=== PATIENT | male | born 1955 | race Caucasian/White ===

== ENCOUNTER 2017-12-13 15:22 | Inpatient (IN) | payer OTHER ==
[2017-12-13 15:48] LABS: ADD MAN DIFF? NO
[2017-12-13] MEDS: ALBUTEROL 0.5% (NEB) 2.5 MG/0.5 ML AMP INH (15:52)
[2017-12-13] MEDS: IPRATROPIUM (NEB) 0.5 MG/2.5 ML AMP INH (15:52)
[2017-12-13 15:53] LABS: BASOPHILS % 0.4 % (0.0-2.0); HEMATOCRIT 56.6 % (42.0-52.0); HEMOGLOBIN 17.2 g/dl (14.0-18.0); LYMPHOCYTES # 0.8 10^3/ul (0.8-2.9); LYMPHOCYTES % 9.2 % (15.0-51.0); MEAN CORPUSCULAR HEMOGLOBIN 28.1 pg (29.0-33.0); MEAN CORPUSCULAR HGB CONC 30.4 g/dl (32.0-37.0); MEAN CORPUSCULAR VOLUME 92.5 fl (82.0-101.0); MEAN PLATELET VOLUME 10.1 fl (7.4-10.4); MONOCYTES % 11.8 % (0.0-11.0); NEUTROPHIL # 6.5 10^3/ul (1.6-7.5); NEUTROPHILS % 78.2 % (39.0-77.0); PLATELET COUNT 185 10^3/UL (140-415); RED BLOOD COUNT 6.12 10^6/ul (4.70-6.10); RED CELL DISTRIBUTION WIDTH 15.1 % (11.5-14.5)
[2017-12-13 15:53] LABS: WHITE BLOOD COUNT 8.3 10^3/ul (4.8-10.8)
[2017-12-13] MEDS: ASPIRIN 81 MG TAB PO (15:57)
[2017-12-13] MEDS: METHYLPREDNISOLONE 125 MG INJ IV (15:58)
[2017-12-13] MEDS: FUROSEMIDE 40 MG INJ IV (15:58)
[2017-12-13] MEDS: ACETAMINOPHEN 325 MG TAB PO (15:58)
[2017-12-13] MEDS: ENALAPRILAT 1.25 MG INJ IV (15:59)
[2017-12-13 16:13] LABS: ALANINE AMINOTRANSFERASE 28 IU/L (13-69); ALBUMIN 3.9 g/dl (3.3-4.9); ALBUMIN/GLOBULIN RATIO 1.21; ALKALINE PHOSPHATASE 84 IU/L (42-121); ANION GAP 14 (8-16); ASPARTATE AMINO TRANSFERASE 38 IU/L (15-46); BILIRUBIN,INDIRECT 0.8 mg/dl (0-1.1); BILIRUBIN,TOTAL 0.8 mg/dl (0.2-1.3); BLOOD UREA NITROGEN 36 mg/dl (7-20); CALCIUM 8.5 mg/dl (8.4-10.2); CARBON DIOXIDE 34 mmol/L (21-31); CHLORIDE 97 mmol/L (97-110); GLUCOSE 127 mg/dl (70-220); LIPASE 115 U/L (23-300); SODIUM 140 mmol/L (135-144); TOTAL PROTEIN 7.1 g/dl (6.1-8.1)
[2017-12-13 16:21] LABS: LACTIC ACID 1.4 mmol/L (0.5-2.0)
[2017-12-13 16:22] LABS: B-TYPE NATRIURETIC PEPTIDE 5320 PG/ML (0-125)
[2017-12-13 16:23] LABS: INR 1.23; PROTIME 15.7 Sec (11.9-14.9); PT RATIO 1.2
[2017-12-13 16:24] LABS: TROPONIN-I 0.012 ng/ml (0.000-0.120)
[2017-12-13] MEDS: CEFTRIAXONE 2 GM/50 ML (PMX) 50 ML IVPB (16:43)
[2017-12-13 19:01] LABS: ADD UMIC NO; UR ASCORBIC ACID NEGATIVE (NEGATIVE); UR BILIRUBIN (Dip) NEGATIVE (NEGATIVE); UR BLOOD (Dip) NEGATIVE (NEGATIVE); UR CLARITY CLEAR (CLEAR); UR COLOR YELLOW (YELLOW); UR GLUCOSE (Dip) NEGATIVE (NEGATIVE); UR KETONES (Dip) NEGATIVE (NEGATIVE); UR LEUKOCYTE ESTERASE (Dip) NEGATIVE Leu/ul (NEGATIVE); UR NITRITE (Dip) NEGATIVE (NEGATIVE); UR SPECIFIC GRAVITY (Dip) 1.012 (1.003-1.030); UR TOTAL PROTEIN (Dip) NEGATIVE (NEGATIVE); UR UROBILINOGEN (Dip) NEGATIVE (NEGATIVE)
[2017-12-13] MEDS ORDERED: ACETAMINOPHEN 325 MG TAB PO (20:00)
[2017-12-13] MEDS ORDERED: ONDANSETRON 4 MG TAB PO (20:00)
[2017-12-13] MEDS ORDERED: DOCUSATE SODIUM 100 MG CAP PO (20:00)
[2017-12-13] MEDS ORDERED: NACL 0.9% 3 ML SYG IV (20:00)
[2017-12-13 20:11] LABS: LACTIC ACID 1.5 mmol/L (0.5-2.0)
[2017-12-13] MEDS ORDERED: hydrALAzine 20 MG INJ IV (22:30)
[2017-12-13 23:31] LABS: LACTIC ACID 2.8 mmol/L (0.5-2.0)
[2017-12-14] MEDS: ALBUTEROL/IPRATROPIUM (NEB) 3 ML AMP HHN ×3 (01:11→20:00)
[2017-12-14 01:21] LABS: ETHANOL < 10.0 mg/dl
[2017-12-14] MEDS ORDERED: FUROSEMIDE 20 MG INJ IV (06:00)
[2017-12-14] MEDS: FUROSEMIDE 40 MG INJ IV ×2 (06:20→17:40)
[2017-12-14 07:01] LABS: AMPHETAMINE/METHAMPHETAMINE POSITIVE (NEGATIVE); BARBITURATES NEGATIVE (NEGATIVE); BENZODIAZEPINES NEGATIVE (NEGATIVE)
[2017-12-14 07:02] LABS: CANNABINOIDS POSITIVE (NEGATIVE); COCAINE NEGATIVE (NEGATIVE); OPIATES NEGATIVE (NEGATIVE)
[2017-12-14 09:16] LABS: ADD MAN DIFF? NO; HAAIG REFLEX REFLEX FILED
[2017-12-14 09:23] LABS: WHITE BLOOD COUNT 7.1 10^3/ul (4.8-10.8)
[2017-12-14 09:23] LABS: ABNORMAL IP MESSAGE 1; HEMATOCRIT 58.3 % (42.0-52.0); HEMOGLOBIN 16.8 g/dl (14.0-18.0); LYMPHOCYTES # 0.4 10^3/ul (0.8-2.9); LYMPHOCYTES % 5.1 % (15.0-51.0); MEAN CORPUSCULAR HEMOGLOBIN 27.3 pg (29.0-33.0); MEAN CORPUSCULAR HGB CONC 28.8 g/dl (32.0-37.0); MEAN CORPUSCULAR VOLUME 94.8 fl (82.0-101.0); MEAN PLATELET VOLUME 10.8 fl (7.4-10.4); MONOCYTE # 0.6 10^3/ul (0.3-0.9); NEUTROPHIL # 6.1 10^3/ul (1.6-7.5); NEUTROPHILS % 85.6 % (39.0-77.0); PLATELET COUNT 180 10^3/UL (140-415); POSITIVE DIFF @See below; RED BLOOD COUNT 6.15 10^6/ul (4.70-6.10); RED CELL DISTRIBUTION WIDTH 16.5 % (11.5-14.5)
[2017-12-14] MEDS ORDERED: ALBUTEROL/IPRATROPIUM (NEB) 3 ML AMP HHN (09:30)
[2017-12-14 09:51] LABS: ALANINE AMINOTRANSFERASE 23 IU/L (13-69); ALBUMIN 3.8 g/dl (3.3-4.9); ALBUMIN/GLOBULIN RATIO 1.15; ALKALINE PHOSPHATASE 79 IU/L (42-121); ASPARTATE AMINO TRANSFERASE 32 IU/L (15-46); BILIRUBIN,INDIRECT 0.1 mg/dl (0-1.1); BILIRUBIN,TOTAL 0.1 mg/dl (0.2-1.3); BLOOD UREA NITROGEN 35 mg/dl (7-20); CALCIUM 8.4 mg/dl (8.4-10.2); CHLORIDE 95 mmol/L (97-110); CHOL/HDL RATIO 2.3 RATIO; CHOLESTEROL 67 mg/dl (100-200); CREATININE 1.17 mg/dl (0.61-1.24); GLUCOSE 167 mg/dl (70-220); HDL CHOLESTEROL 28 mg/dl (30-78); LDL CHOLESTEROL,CALCULATED 25 mg/dl; MAGNESIUM 1.9 mg/dl (1.7-2.5); POTASSIUM 5.4 mmol/L (3.5-5.1); SODIUM 145 mmol/L (135-144); TOTAL PROTEIN 7.1 g/dl (6.1-8.1); TRIGLYCERIDES 69 mg/dl (0-149)
[2017-12-14 09:52] LABS: LACTIC ACID 2.3 mmol/L (0.5-2.0)
[2017-12-14 09:58] LABS: ANION GAP 14 (8-16)
[2017-12-14 09:59] LABS: CARBON DIOXIDE 41 mmol/L (21-31)
[2017-12-14] MEDS: LEVOFLOXACIN 500MG/D5W (PMX) 100 ML IVPB (11:44)
[2017-12-14 13:34] LABS: HEPATITIS B SURFACE ANTIGEN NEGATIVE (NEGATIVE)
[2017-12-14 13:51] LABS: HEPATITIS B CORE ANTIBODY NEGATIVE (NEGATIVE); HEPATITIS C VIRAL ANTIBODY NEGATIVE (NEGATIVE)
[2017-12-14 13:52] LABS: HEPATITIS B SURFACE ANTIBODY NEGATIVE (NEGATIVE)
[2017-12-14 14:22] LABS: HEMOGLOBIN A1C 9.2 % (0-5.9)
[2017-12-14 17:31] LABS: AMMONIA 21 umol/l (9-30)
[2017-12-14] MEDS ORDERED: VANCOMYCIN IV PER PHARMACY XX (19:00)
[2017-12-14] MEDS: BUDESONIDE (NEB) 0.5MG/2ML AMP HHN (20:01)
[2017-12-14] MEDS: VANCOMYCIN 2 GM in SOD CHLORIDE 0.9% 500 ML IVPB (21:02)
[2017-12-14 23:14] LABS: BLOOD UREA NITROGEN 33 mg/dl (7-20); CALCIUM 8.1 mg/dl (8.4-10.2); CHLORIDE 95 mmol/L (97-110); CREATININE 1.14 mg/dl (0.61-1.24); GLUCOSE 118 mg/dl (70-220); POTASSIUM 4.7 mmol/L (3.5-5.1); SODIUM 142 mmol/L (135-144)
[2017-12-14 23:40] LABS: ANION GAP 11 (8-16)
[2017-12-14 23:43] LABS: CARBON DIOXIDE 41 mmol/L (21-31)
[2017-12-15] MEDS: FUROSEMIDE 40 MG INJ IV ×2 (05:30→18:02)
[2017-12-15] MEDS: BUDESONIDE (NEB) 0.5MG/2ML AMP HHN ×2 (08:08→20:01)
[2017-12-15] MEDS: ALBUTEROL/IPRATROPIUM (NEB) 3 ML AMP HHN ×3 (08:08→20:01)
[2017-12-15] MEDS: LEVOFLOXACIN 500MG/D5W (PMX) 100 ML IVPB (08:24)
[2017-12-15 09:42] LABS: Allen Test ACCEPTAB; Arterial Base Excess 12.9 mmol/L (-3.0-3); Arterial Blood Gas Oxygen Sat 98.2 mmHG (95.0-98.0); Arterial COHb 2.1 % (0.0-3.0); Arterial Fraction of Oxyhgb 95.7 % (93.0-99.0); Arterial HCO3 48.7 mmol/L (22.0-26.0); Arterial MetHb 0.4 % (0.0-1.5); Arterial Total Hemglobin 17.2 g/dl (12.0-18.0); MODE MASK - SIMPLE; Site Left Radial
[2017-12-15 09:50] LABS: AADO2 Arterial 111.3 mmHg (7.0-24.0)
[2017-12-15] MEDS: VANCOMYCIN 1.5 GM in SOD CHLORIDE 0.9% 250 ML IVPB ×2 (10:08→20:59)
[2017-12-15 10:43] LABS: ADD MAN DIFF? NO
[2017-12-15 10:49] LABS: BASOPHILS % 0.4 % (0.0-2.0); EOSINOPHILS % 0.1 % (0.0-7.0); HEMOGLOBIN 16.4 g/dl (14.0-18.0); LYMPHOCYTES # 0.6 10^3/ul (0.8-2.9); MEAN CORPUSCULAR HEMOGLOBIN 27.9 pg (29.0-33.0); MEAN CORPUSCULAR HGB CONC 29.3 g/dl (32.0-37.0); MEAN CORPUSCULAR VOLUME 95.4 fl (82.0-101.0); MEAN PLATELET VOLUME 10.5 fl (7.4-10.4); MONOCYTES % 9.4 % (0.0-11.0); NEUTROPHIL # 8.7 10^3/ul (1.6-7.5); NEUTROPHILS % 83.6 % (39.0-77.0); PLATELET COUNT 128 10^3/UL (140-415); RED BLOOD COUNT 5.87 10^6/ul (4.70-6.10); RED CELL DISTRIBUTION WIDTH 15.1 % (11.5-14.5)
[2017-12-15 10:49] LABS: WHITE BLOOD COUNT 10.4 10^3/ul (4.8-10.8)
[2017-12-15 11:19] LABS: BLOOD UREA NITROGEN 31 mg/dl (7-20); CALCIUM 8.1 mg/dl (8.4-10.2); CHLORIDE 96 mmol/L (97-110); CREATININE 0.96 mg/dl (0.61-1.24); GLUCOSE 189 mg/dl (70-220); MAGNESIUM 1.6 mg/dl (1.7-2.5); POTASSIUM 4.9 mmol/L (3.5-5.1); SODIUM 141 mmol/L (135-144)
[2017-12-15 11:39] LABS: ANION GAP 11 (8-16)
[2017-12-15 11:45] LABS: CARBON DIOXIDE 39 mmol/L (21-31)
[2017-12-15 13:30] LABS: AADO2 Arterial 77.7 mmHg (7.0-24.0); Allen Test ACCEPTAB; Arterial Base Excess 9.6 mmol/L (-3.0-3); Arterial Blood Gas Oxygen Sat 92.7 mmHG (95.0-98.0); Arterial Fraction of Oxyhgb 90.8 % (93.0-99.0); Arterial HCO3 41.4 mmol/L (22.0-26.0); Arterial MetHb 0.1 % (0.0-1.5); Arterial Total Hemglobin 16.9 g/dl (12.0-18.0); Arterial pCO2 91.8 mmhg (35-45); Blood Gas IEPAP 20/8; Blood Gas PS 12; MODE MASK - BIPAP; Site Left Radial
[2017-12-15] MEDS: DILTIAZEM 30 MG TAB PO (22:17)
[2017-12-16] MEDS: FUROSEMIDE 40 MG INJ IV ×2 (05:44→17:48)
[2017-12-16] MEDS: DILTIAZEM 30 MG TAB PO ×3 (05:44→22:24)
[2017-12-16] MEDS: BUDESONIDE (NEB) 0.5MG/2ML AMP HHN ×2 (08:37→19:56)
[2017-12-16] MEDS: ALBUTEROL/IPRATROPIUM (NEB) 3 ML AMP HHN ×3 (08:38→19:56)
[2017-12-16 09:11] LABS: ADD MAN DIFF? NO
[2017-12-16 09:18] LABS: WHITE BLOOD COUNT 10.3 10^3/ul (4.8-10.8)
[2017-12-16 09:18] LABS: BASOPHILS % 0.4 % (0.0-2.0); HEMATOCRIT 54.7 % (42.0-52.0); HEMOGLOBIN 16.8 g/dl (14.0-18.0); LYMPHOCYTES # 0.7 10^3/ul (0.8-2.9); MEAN CORPUSCULAR HEMOGLOBIN 28.5 pg (29.0-33.0); MEAN CORPUSCULAR HGB CONC 30.7 g/dl (32.0-37.0); MEAN CORPUSCULAR VOLUME 92.9 fl (82.0-101.0); MEAN PLATELET VOLUME 11.2 fl (7.4-10.4); MONOCYTE # 0.9 10^3/ul (0.3-0.9); MONOCYTES % 8.3 % (0.0-11.0); NEUTROPHIL # 8.7 10^3/ul (1.6-7.5); NEUTROPHILS % 84.1 % (39.0-77.0); PLATELET COUNT 158 10^3/UL (140-415); RED BLOOD COUNT 5.89 10^6/ul (4.70-6.10); RED CELL DISTRIBUTION WIDTH 15.2 % (11.5-14.5)
[2017-12-16 09:30] LABS: ADD MAN DIFF? NO
[2017-12-16 09:35] LABS: WHITE BLOOD COUNT 10.1 10^3/ul (4.8-10.8)
[2017-12-16 09:35] LABS: BASOPHILS % 0.3 % (0.0-2.0); EOSINOPHILS % 0.1 % (0.0-7.0); HEMATOCRIT 55.9 % (42.0-52.0); LYMPHOCYTES # 0.8 10^3/ul (0.8-2.9); LYMPHOCYTES % 7.5 % (15.0-51.0); MEAN CORPUSCULAR HEMOGLOBIN 27.7 pg (29.0-33.0); MEAN CORPUSCULAR HGB CONC 30.4 g/dl (32.0-37.0); MEAN CORPUSCULAR VOLUME 91.2 fl (82.0-101.0); MEAN PLATELET VOLUME 10.3 fl (7.4-10.4); MONOCYTE # 0.9 10^3/ul (0.3-0.9); MONOCYTES % 8.7 % (0.0-11.0); NEUTROPHIL # 8.4 10^3/ul (1.6-7.5); PLATELET COUNT 145 10^3/UL (140-415); RED BLOOD COUNT 6.13 10^6/ul (4.70-6.10); RED CELL DISTRIBUTION WIDTH 15.1 % (11.5-14.5)
[2017-12-16 09:42] LABS: AADO2 Arterial 60.7 mmHg (7.0-24.0); Allen Test ACCEPTAB; Arterial Base Excess 20.8 mmol/L (-3.0-3); Arterial Blood Gas Oxygen Sat 94.6 mmHG (95.0-98.0); Arterial COHb 1.3 % (0.0-3.0); Arterial Fraction of Oxyhgb 93.2 % (93.0-99.0); Arterial HCO3 50.6 mmol/L (22.0-26.0); Arterial MetHb 0.2 % (0.0-1.5); Arterial Total Hemglobin 17.7 g/dl (12.0-18.0); Arterial pCO2 73.1 mmhg (35-45); Blood Gas IEPAP 20/8; Blood Gas PS 12; MODE MASK - BIPAP; Site Left Radial
[2017-12-16 09:44] LABS: ALANINE AMINOTRANSFERASE 31 IU/L (13-69); ALBUMIN 3.3 g/dl (3.3-4.9); ALBUMIN/GLOBULIN RATIO 1.03; ALKALINE PHOSPHATASE 69 IU/L (42-121); ASPARTATE AMINO TRANSFERASE 34 IU/L (15-46); BILIRUBIN,INDIRECT 0.9 mg/dl (0-1.1); BILIRUBIN,TOTAL 0.9 mg/dl (0.2-1.3); BLOOD UREA NITROGEN 24 mg/dl (7-20); CHLORIDE 88 mmol/L (97-110); CREATININE 0.81 mg/dl (0.61-1.24); GLUCOSE 161 mg/dl (70-220); SODIUM 141 mmol/L (135-144); TOTAL PROTEIN 6.5 g/dl (6.1-8.1)
[2017-12-16 09:47] LABS: VANCOMYCIN,TROUGH 14.1 ug/ml (10.0-20.0)
[2017-12-16 10:25] LABS: BLOOD UREA NITROGEN 23 mg/dl (7-20); CALCIUM 8.1 mg/dl (8.4-10.2); CHLORIDE 88 mmol/L (97-110); CREATININE 0.82 mg/dl (0.61-1.24); GLUCOSE 169 mg/dl (70-220); POTASSIUM 4.1 mmol/L (3.5-5.1); SODIUM 141 mmol/L (135-144)
[2017-12-16] MEDS ORDERED: LEVOFLOXACIN 500MG/D5W (PMX) 100 ML IVPB ×2 (11:00→12:00)
[2017-12-16 11:10] LABS: ANION GAP 16 (8-16); CARBON DIOXIDE 39 mmol/L (21-31)
[2017-12-16] MEDS: POTASSIUM CHLORIDE (SR) 20 MEQ TAB PO (12:06)
[2017-12-16] MEDS: DEXAMETHASONE 4 MG/ML 1 ML INJ IV ×2 (12:11→19:45)
[2017-12-16 14:23] LABS: ANION GAP 14 (8-16); CARBON DIOXIDE 43 mmol/L (21-31)
[2017-12-17] MEDS: DEXAMETHASONE 4 MG/ML 1 ML INJ IV ×3 (03:40→18:33)
[2017-12-17] MEDS: DILTIAZEM 30 MG TAB PO ×3 (05:28→21:52)
[2017-12-17] MEDS: FUROSEMIDE 40 MG INJ IV ×2 (05:29→18:33)
[2017-12-17 06:15] LABS: ADD MAN DIFF? NO
[2017-12-17 06:18] LABS: WHITE BLOOD COUNT 9.2 10^3/ul (4.8-10.8)
[2017-12-17 06:18] LABS: ABNORMAL IP MESSAGE 1; BASOPHILS % 0.1 % (0.0-2.0); HEMATOCRIT 54.5 % (42.0-52.0); HEMOGLOBIN 17.2 g/dl (14.0-18.0); LYMPHOCYTES # 0.6 10^3/ul (0.8-2.9); LYMPHOCYTES % 6.4 % (15.0-51.0); MEAN CORPUSCULAR HEMOGLOBIN 27.7 pg (29.0-33.0); MEAN CORPUSCULAR HGB CONC 31.6 g/dl (32.0-37.0); MEAN CORPUSCULAR VOLUME 87.6 fl (82.0-101.0); MONOCYTE # 0.9 10^3/ul (0.3-0.9); MONOCYTES % 9.9 % (0.0-11.0); NEUTROPHIL # 7.6 10^3/ul (1.6-7.5); NEUTROPHILS % 83.2 % (39.0-77.0); PLATELET COUNT 158 10^3/UL (140-415); POSITIVE DIFF @See below; RED BLOOD COUNT 6.22 10^6/ul (4.70-6.10); RED CELL DISTRIBUTION WIDTH 15.3 % (11.5-14.5)
[2017-12-17 07:05] LABS: ALANINE AMINOTRANSFERASE 38 IU/L (13-69); ALBUMIN 3.5 g/dl (3.3-4.9); ALBUMIN/GLOBULIN RATIO 1.02; ALKALINE PHOSPHATASE 76 IU/L (42-121); ASPARTATE AMINO TRANSFERASE 35 IU/L (15-46); BILIRUBIN,INDIRECT 1.5 mg/dl (0-1.1); BILIRUBIN,TOTAL 1.5 mg/dl (0.2-1.3); BLOOD UREA NITROGEN 19 mg/dl (7-20); CALCIUM 8.3 mg/dl (8.4-10.2); CHLORIDE 86 mmol/L (97-110); CREATININE 0.79 mg/dl (0.61-1.24); GLUCOSE 146 mg/dl (70-220); MAGNESIUM 1.2 mg/dl (1.7-2.5); POTASSIUM 3.9 mmol/L (3.5-5.1); SODIUM 139 mmol/L (135-144); TOTAL PROTEIN 6.9 g/dl (6.1-8.1)
[2017-12-17 07:17] LABS: ANION GAP 14 (8-16); CARBON DIOXIDE 43 mmol/L (21-31)
[2017-12-17] MEDS: ALBUTEROL/IPRATROPIUM (NEB) 3 ML AMP HHN ×3 (08:28→19:31)
[2017-12-17] MEDS: BUDESONIDE (NEB) 0.5MG/2ML AMP HHN ×2 (08:39→19:31)
[2017-12-17] MEDS: POTASSIUM CHLORIDE (SR) 20 MEQ TAB PO (09:09)
[2017-12-17] MEDS: MAGNESIUM SULFATE 2 GM/50 ML 50 ML IVPB (09:10)
[2017-12-17 10:10] LABS: AADO2 Arterial 91.5 mmHg (7.0-24.0); Allen Test ACCEPTAB; Arterial Base Excess 17.1 mmol/L (-3.0-3); Arterial Blood Gas Oxygen Sat 93.7 mmHG (95.0-98.0); Arterial COHb 1.3 % (0.0-3.0); Arterial Fraction of Oxyhgb 92.4 % (93.0-99.0); Arterial MetHb 0.1 % (0.0-1.5); Arterial Total Hemglobin 17.9 g/dl (12.0-18.0); Arterial pCO2 51.4 mmhg (35-45); Blood Gas PS 12; MODE MASK - BIPAP; Site Left Radial
[2017-12-17 13:13] LABS: Allen Test ACCEPTAB; Arterial Base Excess 17.5 mmol/L (-3.0-3); Arterial Blood Gas Oxygen Sat 83.2 mmHG (95.0-98.0); Arterial COHb 1.2 % (0.0-3.0); Arterial Fraction of Oxyhgb 82.1 % (93.0-99.0); Arterial HCO3 44.4 mmol/L (22.0-26.0); Arterial MetHb 0.1 % (0.0-1.5); Arterial Total Hemglobin 18.4 g/dl (12.0-18.0); Arterial pCO2 56.3 mmhg (35-45); MODE ROOM AIR; Site Left Radial
[2017-12-18] MEDS: DEXAMETHASONE 4 MG/ML 1 ML INJ IV ×2 (03:32→11:21)
[2017-12-18] MEDS: DILTIAZEM 30 MG TAB PO ×2 (05:19→14:10)
[2017-12-18] MEDS: FUROSEMIDE 40 MG INJ IV (05:19)
[2017-12-18 07:36] LABS: BLOOD UREA NITROGEN 24 mg/dl (7-20); CALCIUM 8.3 mg/dl (8.4-10.2); CHLORIDE 87 mmol/L (97-110); CREATININE 0.93 mg/dl (0.61-1.24); GLUCOSE 160 mg/dl (70-220); SODIUM 139 mmol/L (135-144)
[2017-12-18 07:46] LABS: ANION GAP 15 (8-16)
[2017-12-18 07:47] LABS: CARBON DIOXIDE 41 mmol/L (21-31)
[2017-12-18] MEDS: ALBUTEROL/IPRATROPIUM (NEB) 3 ML AMP HHN ×3 (09:06→19:53)
[2017-12-18] MEDS: BUDESONIDE (NEB) 0.5MG/2ML AMP HHN ×2 (09:06→19:53)
[2017-12-18 12:23] LABS: AADO2 Arterial 22.6 mmHg (7.0-24.0); Allen Test ACCEPTAB; Arterial Base Excess 16.2 mmol/L (-3.0-3); Arterial COHb 1.2 % (0.0-3.0); Arterial Fraction of Oxyhgb 92.8 % (93.0-99.0); Arterial HCO3 42.4 mmol/L (22.0-26.0); Arterial MetHb 0.1 % (0.0-1.5); Arterial Total Hemglobin 17.8 g/dl (12.0-18.0); Arterial pCO2 52.7 mmhg (35-45); MODE ROOM AIR; Site Right Radial
[2017-12-18] MEDS: FUROSEMIDE 20 MG TAB PO (17:58)
[2017-12-18] MEDS: DILTIAZEM 60 MG TAB PO (21:59)
[2017-12-19] MEDS: DILTIAZEM 60 MG TAB PO ×3 (06:29→21:01)
[2017-12-19] MEDS: FUROSEMIDE 20 MG TAB PO ×2 (06:29→17:35)
[2017-12-19] MEDS: BUDESONIDE (NEB) 0.5MG/2ML AMP HHN ×2 (07:03→20:19)
[2017-12-19] MEDS: ALBUTEROL/IPRATROPIUM (NEB) 3 ML AMP HHN ×3 (07:03→20:09)
[2017-12-19] MEDS: predniSONE 20 MG TAB PO (08:15)
[2017-12-19 11:57] LABS: BLOOD UREA NITROGEN 26 mg/dl (7-20); CALCIUM 8.6 mg/dl (8.4-10.2); CHLORIDE 88 mmol/L (97-110); GLUCOSE 304 mg/dl (70-220); MAGNESIUM 1.6 mg/dl (1.7-2.5); POTASSIUM 4.3 mmol/L (3.5-5.1); SODIUM 139 mmol/L (135-144)
[2017-12-19 12:04] LABS: ANION GAP 15 (8-16)
[2017-12-19 12:08] LABS: CARBON DIOXIDE 40 mmol/L (21-31)
[2017-12-19] MEDS: BISACODYL (EC) 5 MG TAB PO (16:23)
[2017-12-20] MEDS: FUROSEMIDE 20 MG TAB PO ×2 (05:46→17:16)
[2017-12-20] MEDS: DILTIAZEM 60 MG TAB PO ×2 (05:46→14:11)
[2017-12-20] MEDS: predniSONE 20 MG TAB PO (08:04)
[2017-12-20] MEDS: BUDESONIDE (NEB) 0.5MG/2ML AMP HHN (08:27)
[2017-12-20] MEDS: ALBUTEROL/IPRATROPIUM (NEB) 3 ML AMP HHN ×2 (08:27→14:01)
[2017-12-20] MEDS: BISACODYL (EC) 5 MG TAB PO (09:11)
== END 2017-12-20 17:59 | disposition home health service (06) | DRG 291 ==
LOC: E/R 15:22 → TEL 16:55
PROVIDERS: Internal Medicine
DX: I11.0 Hypertensive heart disease with heart failure (principal); J96.01 Acute respiratory failure with hypoxia; J18.9 Pneumonia, unspecified organism; J96.02 Acute respiratory failure with hypercapnia; Z68.41 Body mass index [BMI] 40.0-44.9, adult; E66.2 Morbid (severe) obesity with alveolar hypoventilation; R18.8 Other ascites; L03.116 Cellulitis of left lower limb; L03.115 Cellulitis of right lower limb; J43.9 Emphysema, unspecified; I50.33 Acute on chronic diastolic (congestive) heart failure; Z72.0 Tobacco use; E86.0 Dehydration; E66.01 Morbid (severe) obesity due to excess calories; R07.2 Precordial pain; E78.5 Hyperlipidemia, unspecified; G47.33 Obstructive sleep apnea (adult) (pediatric); F15.10 Other stimulant abuse, uncomplicated; K74.60 Unspecified cirrhosis of liver
CPT/HCPCS: 36415; 36600; 71045; 74176; 76705; 80048; 80053; 80061; 80202; 80307; 81003; 82140; 82803; 83036; 83605; 83690; 83735; 83880; 84100; 84443; 84484; 85025; 85610; 85730; 86704; 86706; 86708; 86709; 86803; 87040; 87086; 87340; 93005; 93306; 94640; 94644; 94660; 94664; 96374; 96375; 99291-25